=== PATIENT | female | born 1950 | race Caucasian/White ===

== ENCOUNTER → 2018-03-03 | Outpatient (CLI) | payer MEDICARE ==
[~2018-03-03] MED LIST: APIX2.5T PO; ATEN25TA PO; LOSA-73 PO
--- NOTE | 2018-03-04 09:07 | KCIC ---
Examination: MRI of the right ankle and foot without contrast HISTORY: History of right foot pain, osteoarthritis pain of the lateral aspect, history of fifth digit fracture last November COMPARISON: None available TECHNIQUE: Multiplanar, multisequence MR imaging of the right forefoot was performed without contrast. FINDINGS: Mild hallux valgus. Moderate joint space loss identified at the first MTP joint likely degeneration. Examination limited due to motion artifact. The alignment of the tarsometatarsal joints, interphalangeal grossly appears unremarkable. Minimal increased T2 signal identified in the proximal fourth metatarsal probably stress reactive change.. Probable old fracture of the distal phalanx fifth toe. The attachment of the peroneus longus tendon to the base of the first metatarsal grossly appears intact. The Lisfranc ligament appears intact Mild increased T2 signal identified in the soft tissue of the forefoot in the dorsal aspect.. The attachment of the Achilles tendon to the calcaneus grossly appears intact. There is mild increased T2 signal identified within the Achilles tendon distally. The attachment of the plantar fascial the inferior aspect of the calcaneus grossly appears intact. The anterior and posterior tibial fibular ligament and posterior talofibular ligament appear intact. There is increased signal identified in the region of the anterior talofibular ligament likely tear of the anterior talofibular ligament. There is increased longitudinal signal identified in the peroneus brevis tendon distal to the lateral malleolus, best visualized on series 5 image #18 likely a longitudinal split tear of the peroneus brevis tendon. The peroneus longus tendon grossly appears intact Moderate ankle joint effusion is identified. There is increased T2 signal identified in the lateral malleolus. The posterior tibialis tendon appears intact. There is minimal amount of fluid identified about the posterior tibialis tendon. Small amount of fluid identified in the flexor hallucis longus tendon sheath. The anterior extensor compartment tendons appear unremarkable Moderate increased T2 signal identified in the soft tissue about the ankle joint particularly in the lateral aspect The deltoid ligament is intact. The calcaneofibular ligament is not well-visualized likely tear of the calcaneus ligament at its calcaneal attachment. Fat is present within the sinus tarsi. IMPRESSION: 1. Longitudinal split tear of the peroneus brevis tendon. 2. Increased T2 signal identified in the lateral malleolus likely trabecular edema secondary to contusion or stress reactive change. 3. Moderate ankle joint effusion. Small amount of fluid identified in the flexor hallucis tendon sheath likely extension from ankle joint effusion. 4. Tear of the anterior talofibular ligament and calcaneal insertion of the calcaneofibular ligament. 4. Moderate soft tissue edema identified in the soft tissue around the ankle joint, nonspecific. 5. Mild increased T2 signal identified in the base of the fourth metatarsal probably stress reactive change. 6. Moderate degenerative changes first MTP joint. 7. Chronic Achilles tendinopathy. Electronically signed by: Anatoly Cadena MD (03/04/2018 9:02 AM) [facility]
== END | disposition home or self-care (01) ==
LOC: KCIC MRI 14:49
PROVIDERS: ATTEND Family Medicine Sports Medicine
DX: S96.811A Strain of other specified muscles and tendons at ankle and foot level, right foot, initial encounter (principal); M19.071 Primary osteoarthritis, right ankle and foot; M25.471 Effusion, right ankle; M20.11 Hallux valgus (acquired), right foot; R60.0 Localized edema; X58.XXXA Exposure to other specified factors, initial encounter; Y93.89 Activity, other specified; Y92.89 Other specified places as the place of occurrence of the external cause; Y99.8 Other external cause status
CPT/HCPCS: 73718; 73721

== ENCOUNTER → 2018-07-02 | Outpatient (CLI) | payer MEDICARE ==
[~2018-07-02] MED LIST changes: +0.9 % SODIUM CHLORIDE 10 ML DISP.SYRIN. ID ONE; +CONTRAST GIVEN. MC PRN; +GADOBUTROL 7.5 MMOL/7.5 ML VIAL INT ART ONE; +IOHEXOL 300 MG/ML 50 ML VIAL. INT ART ONE; +LIDOCAINE 1% Multi-Dose 20 ML VIAL. ID ONE
--- NOTE | 2018-07-02 16:34 | KCIC ---
MRI arthrogram of the left shoulder HISTORY: Anterior dislocation, fell one week ago. TECHNIQUE: Routine 3 plane sequences were obtained after intra-articular contrast injection. Patient could not tolerate Aber positioning. FINDINGS: The acromioclavicular joint is mildly degenerative. There is broad partial thickness undersurface tearing of the supraspinatus and infraspinatus tendons, at least 75 percent deep. Undersurface fibers are retracted about 3 cm. The deep aspect of the tear measures 2.5 cm AP diameter with more superficial partial tearing of the remaining cuff tissue. Partial mild subscapularis tendon tear. Laum-[id number] muscle atrophy. Trace subdeltoid bursal effusion. No significant contrast accumulation in the subdeltoid bursa. No advanced articular cartilage loss. No evidence of labral detachment or separation. The biceps tendon is intact. There is no evidence of bone destruction or acute fracture. There is a hypointense lesion or collection within the axillary recess and dissecting anteriorly through the capsule along the anteroinferior subscapularis. This is presumably a large hematoma. Measures 6 cm long axis. There is diffuse soft tissue and intramuscular edema compatible with strain/contusion. There is a small soft tissue nodule just above the outer clavicle shaft, best seen on the coronal series 4 image 18, measuring 21 mm. Another smaller lesion just medial to this. IMPRESSION: 1. Deep partial-thickness undersurface rotator cuff tear of the supraspinatus tendon, with additional partial rotator cuff tear. 2. Large irregular structure along the anteroinferior joint, presumably a posttraumatic hematoma. 3. There are a couple of small soft tissue nodules just above the clavicle, barely visualized on this scan. Largest measures 21 mm. This could represent lymphadenopathy. Correlate clinically, CT scan could further evaluate as indicated. Electronically signed by: Carmelo Nicole MD (07/02/2018 4:31 PM) [facility]
--- NOTE | 2018-07-02 16:46 | KCIC ---
PROCEDURE: Left shoulder injection using fluoroscopic guidance, prior to MR. HISTORY: Shoulder pain. TECHNIQUE: The procedure was explained to the patient as were potential risks, including among others infection, bleeding or allergic reaction. All questions were answered. Informed written and verbal consent was obtained. The shoulder was prepped and draped in the usual sterile manner. Following administration of local anesthetic, a 22-gauge needle was advanced into the anterior shoulder. Following negative aspiration, 12 cc of a solution of 5cc Omnipaque-300 contrast, 5 cc 1% lidocaine, 10 cc normal saline, and 0.1 cc gadolinium was injected without difficulty. The needle was removed. There was good hemostasis at the injection site. The patient left in stable condition without immediate complication. A single spot image is obtained. FLUOROSCOPY TIME:?37 seconds Electronically signed by: Carmelo Nicole MD (07/02/2018 4:44 PM) [facility]
== END | disposition home or self-care (01) ==
LOC: KCIC 13:23
PROVIDERS: ATTEND Orthopaedic Surgery
DX: S46.012A Strain of muscle(s) and tendon(s) of the rotator cuff of left shoulder, initial encounter (principal); M19.012 Primary osteoarthritis, left shoulder; Z88.2 Allergy status to sulfonamides; Z88.8 Allergy status to other drugs, medicaments and biological substances; W19.XXXA Unspecified fall, initial encounter; Y93.89 Activity, other specified; Y92.89 Other specified places as the place of occurrence of the external cause; Y99.8 Other external cause status; I10 Essential (primary) hypertension; I48.91 Unspecified atrial fibrillation; Z79.01 Long term (current) use of anticoagulants; Z79.899 Other long term (current) drug therapy
CPT/HCPCS: 23350; 73040; 73222; A9585; Q9967

== ENCOUNTER → 2018-07-29 | Outpatient (CLI) | payer MEDICARE ==
[~2018-07-29] MED LIST changes: -0.9 % SODIUM CHLORIDE 10 ML DISP.SYRIN. ID ONE; -CONTRAST GIVEN. MC PRN; -GADOBUTROL 7.5 MMOL/7.5 ML VIAL INT ART ONE; +IOHEXOL 300 MG/ML 100ML VIAL. IV ONE; -IOHEXOL 300 MG/ML 50 ML VIAL. INT ART ONE; -LIDOCAINE 1% Multi-Dose 20 ML VIAL. ID ONE
--- NOTE | 2018-07-29 13:27 | KCIC ---
Examination: CT chest with IV contrast HISTORY: History of supraclavicular lymph nodes COMPARISON: None available TECHNIQUE: Axial CT images of the chest were performed with IV contrast. Coronal and sagittal reformats are performed. Exposure: One or more of the following individualized dose reduction techniques were utilized for this examination: 1. Automated exposure control 2. Adjustment of the mA and/or kV according to patient size 3. Use of iterative reconstruction technique FINDINGS: The central airways are patent. The heart size grossly appears unremarkable. Few prominent mediastinal lymph nodes identified. The right hilar region there is a soft tissue density extending into the mediastinum measuring 3.7 x 2.5 cm suspicious for mass or lymphadenopathy.. There is a bilobed density in the left supraclavicular region measuring 2 cm likely a lymph node , a smaller lymph node measuring 1.1 cm identified in the left supraclavicular region. There is soft tissue density identified deep to the left pectoralis muscle measuring 2.1 x 1.7 cm could be soft tissue mass or metastasis or lymphadenopathy. Numerous diffuse bilateral lung nodules identified suspicious for metastasis with the largest measuring 1.1 cm in the right lower lobe of the lung. There is diffuse decreased attenuation noted in the liver likely hepatic steatosis. The visualized spleen, adrenals grossly appears unremarkable. The gallbladder is mildly distended. Small gallstones identified within the gallbladder. The stomach is minimally distended. The visualized pancreas appears unremarkable. Small sclerotic density identified in the inferior endplate of T1 vertebral body, T5, T6, T12, L1 vertebral body could be metastasis or due to degeneration. There is a soft tissue nodule or lymph node identified in the subcutaneous region of the posterior upper back posterior to the C5 spinous process be lymph node or soft tissue nodule. Surgical clips identified in the left axilla. IMPRESSION: 1. Scattered diffuse multiple bilateral lung nodules identified suspicious for metastasis. 2. Soft tissue density measuring 3.7 x 2.5 cm identified in the right hilar region extending into the right mediastinum could be lymphadenopathy or mass. Enlarged prominent mediastinal lymph nodes, left supraclavicular lymph nodes likely metastasis. 3. A soft tissue nodule measuring 2.1 cm identified deep to the left pectoralis major muscle could be metastasis or malignancy or abnormal lymph node.There is a soft tissue nodule or lymph node identified in the subcutaneous region of the posterior upper back posterior to the C5 spinous process be lymph node or soft tissue nodule. A PET CT scan may be useful for further evaluation. 4. Small sclerotic density identified in the inferior endplate of T1 vertebral body, T5, T6, T12, L1 vertebral body could be metastasis or due to degeneration. 5. Hepatic steatosis. 6. Cholelithiasis. Electronically signed by: Anatoly Cadena MD (07/29/2018 1:24 PM) [facility]
== END | disposition home or self-care (01) ==
LOC: KCIC CT 12:34
PROVIDERS: ATTEND Family Medicine
DX: K80.20 Calculus of gallbladder without cholecystitis without obstruction (principal); J98.59 Other diseases of mediastinum, not elsewhere classified; R91.8 Other nonspecific abnormal finding of lung field; K82.8 Other specified diseases of gallbladder; K31.89 Other diseases of stomach and duodenum; Z85.3 Personal history of malignant neoplasm of breast
CPT/HCPCS: 71260; 82565; Q9967